=== PATIENT | male | born 1980 | race Caucasian/White ===

== ENCOUNTER → 2017-02-01 | Outpatient (CLI) | payer SELFPAY ==
[~2017-02-01] MED LIST: AMOXICILLIN500 MG PO; ANAPROX DS550 MG PO; ANTIBIOTIC O500 U/GM TP; CLINDAMYCIN HC300 MG PO; HYDROCODONE BIT1 T11 PO; KEFLEX500 M1 PO; KEFLEX500 MG PO; MOTRIN800 MG PO; NAPROSYN500 MG PO; NORCO 325 MG-51 TAB PO; PEPCID20 MG PO; PERIDEX 480 ML480 ML PO; SEPTRA DS 800 M1 TAB PO; SUBOXONE 8 MG-1 EACH SL; ULTRAM50 MG PO; WELLBUTRIN75 MG PO; ZOLOFT20 MG/ML PO
[2017-02-01 16:04] LABS: URINE AMPHETAMINES < 1000 (1000ng/ml); URINE BARBITURATES < 200 (200ng/ml); URINE COCAINE < 300 (300ng/ml)
== END | disposition home or self-care (01) ==
LOC: LAB 15:34
PROVIDERS: Internal Medicine
DX: F11.20 Opioid dependence, uncomplicated (principal)

== ENCOUNTER 2017-06-07 13:55 | Emergency (ER) | payer SELFPAY ==
[~2017-06-07] VITALS: Wt 65.8 kg
[2017-06-07] MEDS ORDERED: ANAPROX DS550 MG PO (14:18)
[2017-06-07] MEDS ORDERED: CLINDAMYCIN HC300 MG PO (14:18)
== END 2017-06-07 14:30 | disposition home or self-care (01) ==
LOC: ED 13:55
DX: K04.7 Periapical abscess without sinus (principal); F17.200 Nicotine dependence, unspecified, uncomplicated

== ENCOUNTER 2018-07-12 15:53 | Emergency (ER) | payer SELFPAY ==
[~2018-07-12] VITALS: Wt 70.3 kg
[2018-07-12] MEDS ORDERED: PENICILLIN VK500 MG PO (16:22)
[2018-07-12] MEDS ORDERED: NAPROSYN500 MG PO (16:22)
== END 2018-07-12 16:32 | disposition home or self-care (01) ==
LOC: ED 15:53
DX: K04.7 Periapical abscess without sinus (principal); K08.89 Other specified disorders of teeth and supporting structures; Z79.899 Other long term (current) drug therapy